=== PATIENT | male | born 1940 | race Asian ===

== ENCOUNTER 2019-04-27 21:26 | Inpatient (IN) | payer BC, MEDICAID ==
[~2019-04-27] VITALS: Ht 170.2 cm; Wt 74.4 kg
[2019-04-27] MEDS ORDERED: ONDANSETRON HCL 4MG/2ML INJ IV STA (22:42)
[2019-04-27] MEDS ORDERED: KETOROLAC 30MG/ML VIAL IV STA (22:42)
[2019-04-27] MEDS ORDERED: SODIUM CHLORIDE 0.9% 1000ML BAG (SEPSIS BOLUS) IV ONE (22:45)
[2019-04-27 23:18] LABS: HEMATOCRIT. 50.7 % (42.0-52.0); HEMOGLOBIN. 17.3 g/dL (14.0-18.0); MEAN CORPUSCULAR HEMOGLOBIN 31.6 pg (28.0-32.0); MEAN CORPUSCULAR VOLUME 92.6 fL (80.0-94.0); PLATELET 144 x1000/uL (130-400); RED BLOOD CELL COUNT 5.47 mill/uL (4.7-6.1); RED CELL DISTRIBUTION WIDTH 13.9 % (11.6-14.6)
[2019-04-27 23:24] LABS: CHLORIDE 100 mEq/L (98-107); INR 1.2; PROTHROMBIN TIME 12.7 sec (9.6-11.0)
[2019-04-28] MEDS: VANCOMYCIN 1 G PREMIX 200 ML IV SCH ×2 (00:15→01:28)
[2019-04-28] MEDS ORDERED: PIPERACILLIN/TAZ 3.375G PREMIX 50 ML IV ONE (00:15)
[2019-04-28 00:51] LABS: NUCLEATED RED BLOOD CELLS 1 /100 WBC; PLATELET ESTIMATE NORMAL
[2019-04-28 02:15] LABS: CLARITY URINE CLOUDY (CLEAR); COLOR URINE DARK YELLOW (YELLOW); KETONES URINE NEGATIVE (NEGATIVE); LEUKOCYTE ESTERASE URINE TRACE (NEGATIVE); NITRITE URINE POSITIVE (NEGATIVE); OCCULT BLOOD URINE 2+ (NEGATIVE); PH URINE 5.5 (4.5-8.0); PROTEIN URINE 2+ (NEGATIVE); SPECIFIC GRAVITY URINE 1.026 (1.005-1.030)
[2019-04-28] MEDS ORDERED: PIPERACILLIN/TAZOBACTAM 3.375 G in DEXT 5% WATER 100 ML IV SCH ×2 (06:00→08:00)
[2019-04-28] MEDS: SODIUM CHLORIDE 0.9% 1,000 ML IV SCH (06:23)
[2019-04-28] MEDS ORDERED: SODIUM CHLORIDE 0.9% 1,000 ML IV SCH (06:36)
[2019-04-28] MEDS ORDERED: CLONIDINE 0.1MG TABLET PO PRN (06:45)
[2019-04-28] MEDS ORDERED: ONDANSETRON HCL 4MG/2ML INJ IV PRN (06:45)
[2019-04-28] MEDS ORDERED: DIPHENHYDRAMINE 50MG/ML VIAL IV PRN (06:45)
[2019-04-28] MEDS ORDERED: VANCOMYCIN 1250MG in DEXTROSE 5% WATER 250ML IV SCH (07:00)
[2019-04-28 07:44] LABS: CHLORIDE 106 mEq/L (98-107); HEMATOCRIT. 42.7 % (42.0-52.0); HEMOGLOBIN. 14.6 g/dL (14.0-18.0); MEAN CORPUSCULAR HEMOGLOBIN 31.9 pg (28.0-32.0); MEAN CORPUSCULAR VOLUME 92.9 fL (80.0-94.0); MEAN PLATELET VOLUME 7.7 fl (7.4-10.4); PLATELET 104 x1000/uL (130-400); RED CELL DISTRIBUTION WIDTH 14.1 % (11.6-14.6)
[2019-04-28 07:49] LABS: PHOSPHORUS 1.9 mg/dL (2.5-4.9)
[2019-04-28 08:29] LABS: PLATELET ESTIMATE SLIGHTLY DECREASED
[2019-04-28] MEDS ORDERED: ENOXAPARIN 40MG/0.4ML SYR SUBCUT SCH (09:00)
[2019-04-28] MEDS ORDERED: VANCOMYCIN 750 MG PREMIX 150 ML IV SCH (13:00)
[2019-04-28] MEDS ORDERED: LORAZEPAM 2MG/ML CPJ IV PRN (17:00)
[2019-04-28] MEDS ORDERED: VANCOMYCIN 1 G PREMIX 200 ML IV SCH (18:00)
[2019-04-29] MEDS: PIPERACILLIN/TAZOBACTAM 3.375 G in DEXT 5% WATER 100 ML IV SCH ×3 (00:42→20:32)
[2019-04-29] MEDS: VANCOMYCIN 750 MG PREMIX 150 ML IV SCH (12:00)
[2019-04-29] MEDS: ACETAMINOPHEN 325MG TABLET PO PRN (12:43)
[2019-04-29] MEDS ORDERED: VALS80TA30 PO (17:17)
[2019-04-29] MEDS ORDERED: ALBU4TAB6 PO (17:17)
[2019-04-29] MEDS ORDERED: SIMV10TA97 PO (17:17)
[2019-04-29] MEDS ORDERED: DICL100G16 TP (17:18)
[2019-04-29] MEDS ORDERED: GABA-531 PO (17:18)
[2019-04-29] MEDS ORDERED: CELE-84 PO (17:18)
[2019-04-29] MEDS ORDERED: LEVE250T2 PO (17:18)
[2019-04-29] MEDS ORDERED: MECL-159 PO (17:18)
[2019-04-29] MEDS ORDERED: AMYL1CAP61 PO (17:18)
[2019-04-29] MEDS ORDERED: TAMS-11 PO (17:18)
[2019-04-29] MEDS ORDERED: CALC-1280 PO (17:18)
[2019-04-29 17:44] VITALS: BP 127/78
[2019-04-29 18:16] VITALS: BP 127/78
[2019-04-29] MEDS ORDERED: HYDROMORPHONE HCL/PF 2MG/ML CPJ IV PRN (19:45)
[2019-04-29] MEDS ORDERED: SODIUM CHLORIDE 0.9% 1000ML BAG (SEPSIS BOLUS) IV NR (19:47)
[2019-04-29 20:00] VITALS: BP 134/84
[2019-04-29 20:57] LABS: BASOPHILS % 0.1 % (0.0-2.0); EOSINOPHILS % 3.3 % (0.0-5.0); HEMATOCRIT. 42.7 % (42.0-52.0); HEMOGLOBIN. 14.8 g/dL (14.0-18.0); LYMPHOCYTES % 8.2 % (20.0-50.0); MEAN CORPUSCULAR HEMOGLOBIN 31.7 pg (28.0-32.0); MEAN CORPUSCULAR VOLUME 91.8 fL (80.0-94.0); MEAN PLATELET VOLUME 8.1 fl (7.4-10.4); MONOCYTES % 7.4 % (2.0-8.0); PLATELET 80 x1000/uL (130-400); RED BLOOD CELL COUNT 4.65 mill/uL (4.7-6.1); RED CELL DISTRIBUTION WIDTH 13.9 % (11.6-14.6)
[2019-04-29 21:09] LABS: CHLORIDE 104 mEq/L (98-107)
[2019-04-29 22:00] VITALS: BP 136/94
[2019-04-29] MEDS: SODIUM CHLORIDE 0.9% 1,000 ML IV SCH (22:06)
[2019-04-30] VITALS (12 sets, daily range): BP systolic 104–139; BP diastolic 68–93
[2019-04-30] MEDS: VANCOMYCIN 750 MG PREMIX 150 ML IV SCH ×2 (00:48→11:44)
[2019-04-30] MEDS: PIPERACILLIN/TAZOBACTAM 3.375 G in DEXT 5% WATER 100 ML IV SCH ×3 (04:17→22:52)
[2019-04-30 07:26] LABS: BASOPHILS % 0.1 % (0.0-2.0); EOSINOPHILS % 2.5 % (0.0-5.0); HEMATOCRIT. 38.5 % (42.0-52.0); HEMOGLOBIN. 13.2 g/dL (14.0-18.0); LYMPHOCYTES % 8.3 % (20.0-50.0); MEAN CORPUSCULAR HEMOGLOBIN 31.2 pg (28.0-32.0); MEAN CORPUSCULAR VOLUME 90.7 fL (80.0-94.0); MEAN PLATELET VOLUME 8.2 fl (7.4-10.4); MONOCYTES % 9.7 % (2.0-8.0); NEUTROPHILS % 79.4 % (40.0-76.0); PLATELET 74 x1000/uL (130-400); RED BLOOD CELL COUNT 4.25 mill/uL (4.7-6.1); RED CELL DISTRIBUTION WIDTH 13.9 % (11.6-14.6)
[2019-04-30 07:57] LABS: CHLORIDE 108 mEq/L (98-107)
[2019-04-30] MEDS: SODIUM CHLORIDE 0.9% 1,000 ML IV SCH ×2 (11:52→15:28)
[2019-04-30] MEDS ORDERED: POTASSIUM CHLORIDE INJ 40 MEQ in DEXT 5% WATER 250 ML IV NR (12:00)
[2019-04-30] MEDS: ACETAMINOPHEN 325MG TABLET PO PRN ×2 (14:19→21:12)
[2019-04-30] MEDS: PANTOPRAZOLE SODIUM 40 MG/VIAL IV SCH (14:19)
[2019-04-30] MEDS ORDERED: CEFTRIAXONE 2 G PREMIX 50 ML IV SCH (17:45)
[2019-04-30] MEDS ORDERED: DEXTROSE 50% WATER 50ML SYRINGE IV PRN (21:15)
[2019-04-30] MEDS: METRONIDAZOLE 500 MG PREMIX 100 ML IV SCH (23:26)
[2019-05-01] VITALS (13 sets, daily range): BP systolic 102–151; BP diastolic 65–90
[2019-05-01] MEDS: CEFTRIAXONE 2 G in DEXTROSE 5% WATER 50 ML IV SCH ×2 (00:50→20:59)
[2019-05-01] MEDS: SODIUM CHLORIDE 0.9% 1,000 ML IV SCH ×3 (01:28→21:00)
[2019-05-01] MEDS: PIPERACILLIN/TAZOBACTAM 3.375 G in DEXT 5% WATER 100 ML IV SCH (05:55)
[2019-05-01] MEDS: BLOOD SUGAR DIAGNOSTIC STRIP TEST SCH ×4 (05:57→21:01)
[2019-05-01] MEDS: METRONIDAZOLE 500 MG PREMIX 100 ML IV SCH ×3 (06:39→20:09)
[2019-05-01] MEDS: INSULIN LISPRO 100 UNITS/ML SUBCUT SCH ×4 (07:17→21:00)
[2019-05-01] MEDS: PANTOPRAZOLE SODIUM 40 MG/VIAL IV SCH (07:28)
[2019-05-01 07:43] LABS: BASOPHILS % 0.2 % (0.0-2.0); EOSINOPHILS % 3.5 % (0.0-5.0); HEMOGLOBIN. 12.7 g/dL (14.0-18.0); LYMPHOCYTES % 8.1 % (20.0-50.0); MEAN CORPUSCULAR HEMOGLOBIN 31.4 pg (28.0-32.0); MEAN CORPUSCULAR VOLUME 91.4 fL (80.0-94.0); MEAN PLATELET VOLUME 8.5 fl (7.4-10.4); NEUTROPHILS % 79.2 % (40.0-76.0); PLATELET 82 x1000/uL (130-400); RED BLOOD CELL COUNT 4.05 mill/uL (4.7-6.1)
[2019-05-01 08:31] LABS: CHLORIDE 109 mEq/L (98-107)
[2019-05-01] MEDS ORDERED: POTASSIUM CHLORIDE 20MEQ TABLET SR PO SCH (09:00)
[2019-05-01] MEDS ORDERED: LACTULOSE 20G/30ML UDC PO NR (09:30)
[2019-05-01] MEDS ORDERED: NA PHOS,M-B/NA PHOS,DI-BA ENEMA 118ML PR NR (09:30)
[2019-05-02] VITALS (11 sets, daily range): BP systolic 109–143; BP diastolic 66–92
[2019-05-02] MEDS: METRONIDAZOLE 500 MG PREMIX 100 ML IV SCH ×3 (03:01→19:33)
[2019-05-02] MEDS: BLOOD SUGAR DIAGNOSTIC STRIP TEST SCH ×4 (06:09→20:47)
[2019-05-02] MEDS: INSULIN LISPRO 100 UNITS/ML SUBCUT SCH ×4 (06:13→20:47)
[2019-05-02 06:46] LABS: BASOPHILS % 0.3 % (0.0-2.0); EOSINOPHILS % 3.5 % (0.0-5.0); HEMATOCRIT. 36.1 % (42.0-52.0); HEMOGLOBIN. 12.2 g/dL (14.0-18.0); LYMPHOCYTES % 11.3 % (20.0-50.0); MEAN CORPUSCULAR HEMOGLOBIN 30.8 pg (28.0-32.0); MEAN CORPUSCULAR VOLUME 91.1 fL (80.0-94.0); MEAN PLATELET VOLUME 8.5 fl (7.4-10.4); MONOCYTES % 9.4 % (2.0-8.0); NEUTROPHILS % 75.5 % (40.0-76.0); PLATELET 111 x1000/uL (130-400); RED BLOOD CELL COUNT 3.96 mill/uL (4.7-6.1); RED CELL DISTRIBUTION WIDTH 14.2 % (11.6-14.6)
[2019-05-02 07:20] LABS: CHLORIDE 110 mEq/L (98-107)
[2019-05-02] MEDS: PANTOPRAZOLE SODIUM 40 MG/VIAL IV SCH (08:00)
[2019-05-02] MEDS: SODIUM CHLORIDE 0.9% 1,000 ML IV SCH ×2 (08:01→21:26)
[2019-05-02] MEDS ORDERED: POTASSIUM CHLORIDE INJ 40 MEQ in DEXT 5% WATER 250 ML IV NR (13:00)
[2019-05-02] MEDS ORDERED: POTASSIUM CHLORIDE 20MEQ TABLET SR PO NR (14:30)
[2019-05-02] MEDS: CEFTRIAXONE 2 G in DEXTROSE 5% WATER 50 ML IV SCH (19:33)
[2019-05-03] VITALS (8 sets, daily range): BP systolic 111–138; BP diastolic 70–91
[2019-05-03] MEDS: SODIUM CHLORIDE 0.9% 1,000 ML IV SCH ×2 (03:28→13:28)
[2019-05-03] MEDS: METRONIDAZOLE 500 MG PREMIX 100 ML IV SCH ×2 (04:25→12:31)
[2019-05-03] MEDS: BLOOD SUGAR DIAGNOSTIC STRIP TEST SCH ×3 (05:48→20:31)
[2019-05-03] MEDS: INSULIN LISPRO 100 UNITS/ML SUBCUT SCH ×3 (05:48→20:31)
[2019-05-03 07:00] LABS: CHLORIDE 110 mEq/L (98-107)
[2019-05-03 07:18] LABS: BASOPHILS % 0.3 % (0.0-2.0); EOSINOPHILS % 5.1 % (0.0-5.0); HEMATOCRIT. 35.4 % (42.0-52.0); HEMOGLOBIN. 12.3 g/dL (14.0-18.0); LYMPHOCYTES % 15.3 % (20.0-50.0); MEAN CORPUSCULAR HEMOGLOBIN 31.1 pg (28.0-32.0); MEAN CORPUSCULAR VOLUME 89.7 fL (80.0-94.0); MEAN PLATELET VOLUME 8.1 fl (7.4-10.4); MONOCYTES % 7.9 % (2.0-8.0); NEUTROPHILS % 71.4 % (40.0-76.0); PLATELET 183 x1000/uL (130-400); RED BLOOD CELL COUNT 3.95 mill/uL (4.7-6.1); RED CELL DISTRIBUTION WIDTH 14.1 % (11.6-14.6)
[2019-05-03] MEDS: ACETAMINOPHEN 325MG TABLET PO PRN (07:59)
[2019-05-03] MEDS: PANTOPRAZOLE SODIUM 40 MG/VIAL IV SCH (07:59)
[2019-05-03] MEDS: CEFTRIAXONE 2 G in DEXTROSE 5% WATER 50 ML IV SCH (20:26)
[2019-05-03] MEDS: METRONIDAZOLE 500MG TABLET PO SCH (21:07)
[2019-05-04] VITALS (8 sets, daily range): BP systolic 117–142; BP diastolic 68–86
[2019-05-04] MEDS: SODIUM CHLORIDE 0.9% 1,000 ML IV SCH ×2 (03:56→10:00)
[2019-05-04] MEDS: METRONIDAZOLE 500MG TABLET PO SCH ×2 (05:32→14:56)
[2019-05-04] MEDS: INSULIN LISPRO 100 UNITS/ML SUBCUT SCH ×2 (05:39→12:30)
[2019-05-04] MEDS: BLOOD SUGAR DIAGNOSTIC STRIP TEST SCH ×2 (05:39→11:49)
[2019-05-04 06:55] LABS: BASOPHILS % 0.4 % (0.0-2.0); EOSINOPHILS % 6.6 % (0.0-5.0); HEMATOCRIT. 35.9 % (42.0-52.0); HEMOGLOBIN. 12.4 g/dL (14.0-18.0); LYMPHOCYTES % 16.1 % (20.0-50.0); MEAN CORPUSCULAR VOLUME 89.7 fL (80.0-94.0); MEAN PLATELET VOLUME 7.7 fl (7.4-10.4); NEUTROPHILS % 69.9 % (40.0-76.0); PLATELET 243 x1000/uL (130-400); RED BLOOD CELL COUNT 4.01 mill/uL (4.7-6.1); RED CELL DISTRIBUTION WIDTH 13.9 % (11.6-14.6)
[2019-05-04 07:44] LABS: CHLORIDE 110 mEq/L (98-107)
[2019-05-04] MEDS: PANTOPRAZOLE SODIUM 40 MG/VIAL IV SCH (09:56)
[2019-05-04] MEDS ORDERED: POTASSIUM CHLORIDE 20MEQ TABLET SR PO NR (12:00)
[2019-05-04] MEDS ORDERED: LEVO750T21 MT (12:07)
[2019-05-05 16:11] LABS: HEPATITIS B SURFACE ANTIGEN NEGATIVE
[2019-05-05 16:40] LABS: HEPATITIS A AB IGM NEGATIVE (NEGATIVE)
== END 2019-05-04 17:10 | disposition home or self-care (01) | DRG 871 ==
LOC: ER 21:26 → EDBEDREQ 04-28 01:25 → EDBEDREQTM 04-28 02:57 → EDBEDREQDT 04-28 02:57 → ENRESERV 04-29 16:38 → 3WST 04-29 17:58
PROVIDERS: ADMIT Internal Medicine; ATTEND Internal Medicine
DX: A41.89 Other specified sepsis (principal); J18.9 Pneumonia, unspecified organism; E87.2 Acidosis; K82.0 Obstruction of gallbladder; N39.0 Urinary tract infection, site not specified; R18.8 Other ascites; J91.8 Pleural effusion in other conditions classified elsewhere; K81.0 Acute cholecystitis; R65.20 Severe sepsis without septic shock; D69.6 Thrombocytopenia, unspecified; E11.65 Type 2 diabetes mellitus with hyperglycemia; E78.5 Hyperlipidemia, unspecified; E87.6 Hypokalemia; G40.909 Epilepsy, unspecified, not intractable, without status epilepticus; I10 Essential (primary) hypertension; K76.0 Fatty (change of) liver, not elsewhere classified; N28.1 Cyst of kidney, acquired; R16.0 Hepatomegaly, not elsewhere classified; E87.5 Hyperkalemia
CPT/HCPCS: 36415; 71045; 74018; 74176; 74181; 76700; 76705; 78227; 80048; 80053; 80061; 80076; 80202; 81003; 82140; 82248; 82962; 83036; 83605; 83735; 83880; 84100; 84145; 84443; 84450; 84460; 84484; 85025; 86705; 86709; 86803; 87077; 87186; 87340; 93005; 93306; 93970; 96361; 96365; 96366; 96367; 96372; 96375; 97116; 97162; 97166; 99291; A9537; C9113; J0696; J1650; J1815; J1885; J2405; J2543; J3370; J3480; J3490; J7030; J7060

== ENCOUNTER 2020-02-28 13:52 | Emergency (ER) | payer BC, MEDICAID ==
[~2020-02-28] VITALS: Ht 165.1 cm; Wt 61.0 kg
[~2020-02-28 13:52] MED LIST: ALBU4TAB6 PO; AMYL1CAP61 PO; CALC-1280 PO; CELE-84 PO; DICL100G16 TP; GABA-531 PO; LEVE250T2 PO; LEVO750T21 MT; MECL-159 PO; SIMV10TA97 PO; TAMS-11 PO; VALS80TA30 PO
[2020-02-28 14:00] VITALS: BP 112/68
[2020-02-28] MEDS ORDERED: BACITRACIN ZINC OINT UDPKT TOP ONE (18:15)
[2020-02-28] MEDS ORDERED: TETANUS, DIPHTHERIA, PERTUSSIS VAC/PF 0.5ML (>7YR OLD) IM ONE (18:15)
[2020-02-28] MEDS ORDERED: LIDOCAINE HCL 1% 20ML VIAL (Pyxis) INJ INFIL ONE (19:30)
[2020-02-28] MEDS ORDERED: CEPHALEXIN 250MG CAPSULE PO ONE (20:00)
== END 2020-02-28 20:50 | disposition home or self-care (01) ==
LOC: ER 14:01
DX: S01.111A Laceration without foreign body of right eyelid and periocular area, initial encounter (principal); S09.90XA Unspecified injury of head, initial encounter; M54.2 Cervicalgia; E11.9 Type 2 diabetes mellitus without complications; I10 Essential (primary) hypertension; W01.0XXA Fall on same level from slipping, tripping and stumbling without subsequent striking against object, initial encounter; Y93.89 Activity, other specified; Y92.018 Other place in single-family (private) house as the place of occurrence of the external cause
CPT/HCPCS: 70450; 70486; 72125; 90471; 90715; 93005; 99285; J3490

== ENCOUNTER 2023-06-27 18:37 | Inpatient (IN) | payer BC, MEDICAID ==
[~2023-06-27] VITALS: Ht 172.7 cm; Wt 71.3 kg
[~2023-06-27 18:37] MED LIST changes: +CELE-116 PO; -CELE-84 PO; -GABA-531 PO; +GABA-532 PO; -MECL-159 PO; +MECL-299 PO
[2023-06-27 18:50] VITALS: PULSE 124; RESP 17
[2023-06-27] MEDS: SODIUM CHLORIDE 0.9% 1000ML BAG (SEPSIS BOLUS) IV ONE (19:02)
[2023-06-27] MEDS: PIPERACILLIN/TAZO 3.375G/50ML 50 ML IV ONE (19:09)
[2023-06-27] MEDS: ROCURONIUM BROMIDE 10MG/ML VIAL 5ML IV ONE (19:10)
[2023-06-27 19:16] LABS: BASOPHILS % 0.6 % (0.0-2.0); EOSINOPHILS % 0.3 % (0.0-5.0); HEMATOCRIT. 35.4 % (42.0-52.0); HEMOGLOBIN. 11.9 g/dL (14.0-18.0); LYMPHOCYTES % 17.5 % (20.0-50.0); MEAN CORPUSCULAR HEMOGLOBIN 29.8 pg (28.0-32.0); MEAN CORPUSCULAR HGB CONC 33.6 g/dL (31.0-37.0); MEAN CORPUSCULAR VOLUME 88.5 fL (80.0-94.0); MONOCYTES % 12.6 % (2.0-8.0); PLATELET 144 x1000/uL (130-400); RED CELL DISTRIBUTION WIDTH 17.9 % (11.6-14.6); WHITE BLOOD COUNT 7.7 x1000/uL (4.5-11.0)
[2023-06-27 19:26] LABS: INR 1.2
[2023-06-27] MEDS: VANCOMYCIN 1G PREMIX 200 ML IV ONE (19:28)
[2023-06-27 19:30] LABS: LACTIC ACID 2.5 mmol/L (0.4-2.0)
[2023-06-27 19:31] LABS: ALANINE AMINOTRANSFERASE 46 IU/L (10-49); ALBUMIN 3.5 g/dL (3.2-4.8); ASPARTATE AMINOTRANSFERASE 56 IU/L (<34); BILIRUBIN TOTAL 2.2 mg/dL (0.1-1.0); CALCIUM 8.7 mg/dL (8.7-10.4); CARBON DIOXIDE 19 mEq/L (21-32); CHLORIDE 112 mEq/L (98-107); CREATINE KINASE 507 IU/L (46-171); CREATININE 1.1 mg/dL (0.6-1.3); GLUCOSE 81 mg/dL (70-105); POTASSIUM 4.2 mEq/L (3.5-5.1); PROTEIN TOTAL 6.9 g/dL (6.0-8.3); SODIUM 142 mEq/L (136-145); UREA NITROGEN BLOOD 31 mg/dL (9-23)
[2023-06-27 19:33] LABS: ETHANOL BLOOD < 10 mg/dL (<10)
[2023-06-27 19:47] LABS: CLARITY URINE CLEAR (CLEAR); COLOR URINE YELLOW (YELLOW); GLUCOSE URINE NEGATIVE (NEGATIVE); KETONES URINE 1+ (NEGATIVE); LEUKOCYTE ESTERASE URINE NEGATIVE (NEGATIVE); NITRITE URINE NEGATIVE (NEGATIVE); OCCULT BLOOD URINE 1+ (NEGATIVE); PROTEIN URINE TRACE (NEGATIVE); SPECIFIC GRAVITY URINE 1.019 (1.005-1.030)
[2023-06-27 19:56] LABS: *AMPHETAMINES SCREEN URINE NEGATIVE (NEGATIVE); *BARBITURATES SCREEN URINE NEGATIVE (NEGATIVE); *BENZODIAZEPINES SCREEN URINE NEGATIVE (NEGATIVE); *COCAINE SCREEN URINE NEGATIVE (NEGATIVE); CANNABINOID URINE SCREEN NEGATIVE (NEGATIVE); ECSTASY MDMA SCREEN URINE NEGATIVE (NEGATIVE); METHADONE URINE SCREEN Neg (NEGATIVE); OPIATES URINE SCREEN NEGATIVE (NEGATIVE); PHENCYCLIDINE URINE SCREEN NEGATIVE (NEGATIVE)
[2023-06-27 19:59] LABS: BACTERIA URINE NONE SEEN; RBC URINE 0-2 /hpf (0-2); SQUAMOUS EPITHELIAL CELL URINE 1+ /lpf (RARE/1+); WBC URINE 0-2 /hpf (0-2)
[2023-06-27 20:59] VITALS: PULSE 92; RESP 16
[2023-06-27] MEDS ORDERED: FENTANYL 2500MCG/250ML PMX 250 ML IV NR (21:30)
[2023-06-27] MEDS: PROPOFOL 10MG/ML 100ML 100 ML IV SCH (21:33)
[2023-06-27 22:26] LABS: BG BASE EXCESS -7.4 mmol/L (-2.0-2.0); BG DEOXYHEMOGLOBIN 2.1 % (0.0-5.0); BG FRACTION INSPIRED OXYGEN 100; BG HCO3 ACT 17.1 mmol/L (22.0-26.0); BG METHEMOGLOBIN 0.3 % (0.0-1.5); BG OXYGEN SATURATION 97.9 % (92.0-98.5); BG OXYHEMOGLOBIN 97.6 % (94.0-97.0); BG PCO2 31.8 mmHg (35.0-45.0); BG PH 7.349 (7.350-7.450); BG PO2 156.8 mmHg (75.0-100.0); BG SAMPLE SITE RIGHT RADIAL; BG TOTAL HEMOGLOBIN 12.2 g/dL (12.0-18.0); BG VENT MODE VENT - AC
[2023-06-27] MEDS: NOREPINEPHRINE 8MG/250ML PMX 250 ML IV ONE (22:28)
[2023-06-28] VITALS (32 sets, daily range): BP systolic 106–152; BP diastolic 55–79; PULSE 65–101; RESP 15–28; TEMP 97.1
[2023-06-28 00:23] LABS: TROPONIN I HIGH SENSITIVITY 82 ng/L (3.0-53)
[2023-06-28] MEDS ORDERED: ONDANSETRON HCL 4MG/2ML INJ IV PRN (01:00)
[2023-06-28] MEDS ORDERED: ACETAMINOPHEN 650MG SUPP PR PRN (01:00)
[2023-06-28] MEDS ORDERED: DIPHENHYDRAMINE 50MG/ML VIAL IV PRN (01:00)
[2023-06-28] MEDS: CEFTRIAXONE 1GM/50ML 50 ML IV SCH (02:01)
[2023-06-28] MEDS: ACETAMINOPHEN 650MG SUPP PR PRN (02:30)
[2023-06-28] MEDS: DEXT 5%/0.45% NACL 1000ML 1,000 ML IV SCH (03:00)
[2023-06-28] MEDS: FENTANYL 2500MCG/250ML PMX 250 ML IV NR (03:47)
[2023-06-28 04:28] LABS: EOSINOPHILS % 0.4 % (0.0-5.0); HEMOGLOBIN. 12.7 g/dL (14.0-18.0); LYMPHOCYTES % 19.6 % (20.0-50.0); MEAN CORPUSCULAR HEMOGLOBIN 30.8 pg (28.0-32.0); MEAN CORPUSCULAR HGB CONC 33.4 g/dL (31.0-37.0); MEAN CORPUSCULAR VOLUME 92.1 fL (80.0-94.0); MEAN PLATELET VOLUME 7.7 fl (7.4-10.4); MONOCYTES % 12.7 % (2.0-8.0); NEUTROPHILS % 66.3 % (40.0-76.0); PLATELET 112 x1000/uL (130-400); RED BLOOD CELL COUNT 4.12 mill/uL (4.7-6.1); RED CELL DISTRIBUTION WIDTH 18.5 % (11.6-14.6); WHITE BLOOD COUNT 10.2 x1000/uL (4.5-11.0)
[2023-06-28 04:47] LABS: CALCIUM 7.9 mg/dL (8.7-10.4); CARBON DIOXIDE 18 mEq/L (21-32); CHLORIDE 112 mEq/L (98-107); CREATININE 0.9 mg/dL (0.6-1.3); GLUCOSE 107 mg/dL (70-105); POTASSIUM 3.9 mEq/L (3.5-5.1); SODIUM 139 mEq/L (136-145); UREA NITROGEN BLOOD 20 mg/dL (9-23)
[2023-06-28 04:49] LABS: AMMONIA 85 uMol/L (<32)
[2023-06-28] MEDS ORDERED: LIDOCAINE HCL 1% 10 MG/ML 10ML VIAL ONE (09:31)
[2023-06-28] MEDS: ENOXAPARIN 40MG/0.4ML SYR SUBCUT SCH (09:36)
[2023-06-28] MEDS: PROPOFOL 10MG/ML 100ML 100 ML IV PRN (10:00)
[2023-06-28] MEDS: NOREPINEPHRINE 8MG/250ML PMX 250 ML IV PRN (10:23)
[2023-06-28 11:40] LABS: TROPONIN I HIGH SENSITIVITY 136 ng/L (3.0-53)
[2023-06-28 12:36] LABS: PHOSPHORUS 2.4 mg/dL (2.5-4.9)
[2023-06-28] MEDS: PANTOPRAZOLE SODIUM 40 MG/VIAL IV SCH (12:40)
[2023-06-28 12:42] LABS: IRON 45 ug/dL (65-175); TOTAL IRON BINDING CAPACITY 232 ug/dl (250-425)
[2023-06-28] MEDS: POTASSIUM PHOSPHATE 20 MMOL in DEXT 5% WATER 243.3333 ML IV NR (14:20)
[2023-06-28] MEDS: MAGNESIUM 2 G PREMIX 50 ML IV NR (14:20)
[2023-06-28] MEDS ORDERED: HYDRALAZINE 20MG/ML VIAL IV PRN (15:15)
[2023-06-28 17:32] LABS: D-DIMER 3.13 mg/L FEU (<0.50); PARTIAL THROMBOPLASTIN TIME 34.6 sec (23.4-31.0)
[2023-06-28] MEDS ORDERED: METRONIDAZOLE 500 MG PREMIX 100 ML IV SCH (18:00)
[2023-06-28] MEDS: LACTULOSE 20G/30ML UDC NG SCH (18:20)
[2023-06-28] MEDS ORDERED: CEFEPIME 1GM/50ML 50 ML IV SCH (19:30)
[2023-06-28] MEDS: METRONIDAZOLE 500 MG PREMIX 100 ML IV SCH (21:13)
[2023-06-28] MEDS: CEFEPIME 1GM/50ML 50 ML IV SCH (22:41)
[2023-06-29] VITALS (93 sets, daily range): BP systolic 92–131; BP diastolic 49–87; PULSE 59–94; RESP 8–18; TEMP 97.9–98.4
[2023-06-29 05:44] LABS: AMMONIA 36 uMol/L (<32)
[2023-06-29 05:54] LABS: BASOPHILS % 0.3 % (0.0-2.0); EOSINOPHILS % 1.3 % (0.0-5.0); HEMOGLOBIN. 11.2 g/dL (14.0-18.0); LYMPHOCYTES % 11.7 % (20.0-50.0); MEAN CORPUSCULAR HEMOGLOBIN 30.6 pg (28.0-32.0); MEAN CORPUSCULAR VOLUME 92.7 fL (80.0-94.0); MEAN PLATELET VOLUME 7.7 fl (7.4-10.4); MONOCYTES % 7.5 % (2.0-8.0); NEUTROPHILS % 79.2 % (40.0-76.0); PLATELET 86 x1000/uL (130-400); RED BLOOD CELL COUNT 3.66 mill/uL (4.7-6.1); RED CELL DISTRIBUTION WIDTH 18.2 % (11.6-14.6); WHITE BLOOD COUNT 8.6 x1000/uL (4.5-11.0)
[2023-06-29 06:10] LABS: CARBON DIOXIDE 21 mEq/L (21-32); CHLORIDE 113 mEq/L (98-107); CREATININE 0.8 mg/dL (0.6-1.3); GLUCOSE 141 mg/dL (70-105); POTASSIUM 3.2 mEq/L (3.5-5.1); SODIUM 141 mEq/L (136-145); UREA NITROGEN BLOOD 17 mg/dL (9-23)
[2023-06-29 06:47] LABS: HEPATITIS B SURFACE ANTIGEN NEGATIVE (Negative); HEPATITIS C AB NON REACTIVE (Neg) (Negative)
[2023-06-29] MEDS ORDERED: POTASSIUM CHLORIDE 20MEQ/PACKET NG ONE (08:15)
[2023-06-29 09:23] LABS: BG BASE EXCESS -2.7 mmol/L (-2.0-2.0); BG CARBOXYHEMOGLOBIN 0.5 % (0.5-1.5); BG DEOXYHEMOGLOBIN 3.5 % (0.0-5.0); BG FRACTION INSPIRED OXYGEN 40; BG HCO3 ACT 20.8 mmol/L (22.0-26.0); BG METHEMOGLOBIN 0.3 % (0.0-1.5); BG OXYGEN SATURATION 96.5 % (92.0-98.5); BG OXYHEMOGLOBIN 95.7 % (94.0-97.0); BG PCO2 32.1 mmHg (35.0-45.0); BG PO2 100.9 mmHg (75.0-100.0); BG SAMPLE SITE RIGHT RADIAL; BG TOTAL HEMOGLOBIN 12.2 g/dL (12.0-18.0); BG VENT MODE VENT - AC
[2023-06-29] MEDS: POTASSIUM PHOSPHATE 30 MMOL in DEXT 5% WATER 490 ML IV SCH (10:31)
[2023-06-29] MEDS: MAGNESIUM 2 G PREMIX 50 ML IV SCH (10:32)
[2023-06-29] MEDS: CEFEPIME 2GM/100ML 100 ML IV SCH (10:32)
[2023-06-29] MEDS: POTASSIUM CHLORIDE 20MEQ/PACKET NG SCH (10:33)
[2023-06-29 14:16] LABS: BG BASE EXCESS -3.4 mmol/L (-2.0-2.0); BG CARBOXYHEMOGLOBIN 0.3 % (0.5-1.5); BG DEOXYHEMOGLOBIN 2.6 % (0.0-5.0); BG FRACTION INSPIRED OXYGEN 40; BG HCO3 ACT 19.9 mmol/L (22.0-26.0); BG METHEMOGLOBIN 0.3 % (0.0-1.5); BG OXYGEN SATURATION 97.4 % (92.0-98.5); BG OXYHEMOGLOBIN 96.8 % (94.0-97.0); BG PCO2 29.9 mmHg (35.0-45.0); BG PH 7.441 (7.350-7.450); BG PO2 132.4 mmHg (75.0-100.0); BG SAMPLE SITE LEFT BRACHIAL; BG TOTAL HEMOGLOBIN 10.8 g/dL (12.0-18.0); BG VENT MODE VENT - CPAP
[2023-06-29] MEDS ORDERED: ICOS1CAP PO (20:55)
[2023-06-29] MEDS ORDERED: [UNRECOGNIZED DRUG - CODE] MT (20:56)
[2023-06-29] MEDS ORDERED: ATOR10TA MT (20:57)
[2023-06-29] MEDS ORDERED: MONT-46 MT (20:57)
[2023-06-29] MEDS ORDERED: OMEP40CA20 MT (20:57)
[2023-06-29] MEDS ORDERED: LOSA-413 PO (20:57)
[2023-06-29] MEDS ORDERED: SITA1TAB2 PO (20:59)
[2023-06-29] MEDS ORDERED: ISOS30TA91 PO (20:59)
[2023-06-29] MEDS ORDERED: RASA0.5T MT (20:59)
[2023-06-30] VITALS (81 sets, daily range): BP systolic 91–129; BP diastolic 54–89; PULSE 60–91; RESP 8–19; TEMP 98.2–98.6
[2023-06-30 05:26] LABS: HEMATOCRIT 31.7 % (42.0-52.0); HEMOGLOBIN 10.6 g/dL (14.0-18.0); MEAN CORPUSCULAR HEMOGLOBIN 30.5 pg (28.0-32.0); MEAN CORPUSCULAR HGB CONC 33.3 g/dL (31.0-37.0); MEAN CORPUSCULAR VOLUME 91.5 fL (80.0-94.0); PLATELET 71 x1000/uL (130-400); RED BLOOD CELL COUNT 3.47 mill/uL (4.7-6.1); RED CELL DISTRIBUTION WIDTH 17.9 % (11.6-14.6); WHITE BLOOD COUNT 4.8 x1000/uL (4.5-11.0)
[2023-06-30 05:43] LABS: AMMONIA 45 uMol/L (<32)
[2023-06-30 05:47] LABS: ALANINE AMINOTRANSFERASE 35 IU/L (10-49); ALBUMIN 2.7 g/dL (3.2-4.8); ASPARTATE AMINOTRANSFERASE 48 IU/L (<34); BILIRUBIN TOTAL 1.3 mg/dL (0.1-1.0); CALCIUM 8.1 mg/dL (8.7-10.4); CARBON DIOXIDE 21 mEq/L (21-32); CHLORIDE 113 mEq/L (98-107); CREATININE 0.6 mg/dL (0.6-1.3); GLUCOSE 130 mg/dL (70-105); PHOSPHORUS 2.1 mg/dL (2.5-4.9); PROTEIN TOTAL 5.5 g/dL (6.0-8.3); SODIUM 141 mEq/L (136-145); UREA NITROGEN BLOOD 12 mg/dL (9-23)
[2023-06-30] MEDS ORDERED: POTASSIUM CHLORIDE 20MEQ/PACKET PO ONE (08:15)
[2023-06-30] MEDS: POTASSIUM CHLORIDE 20MEQ/PACKET NG NR (08:33)
[2023-06-30] MEDS: RIFAXIMIN 550 MG TABLET NG SCH (08:33)
[2023-06-30] MEDS: POTASSIUM PHOSPHATE 30 MMOL in DEXT 5% WATER 490 ML IV NR (08:34)
[2023-06-30 08:43] LABS: BG BASE EXCESS -4.4 mmol/L (-2.0-2.0); BG CARBOXYHEMOGLOBIN 0.2 % (0.5-1.5); BG DEOXYHEMOGLOBIN 2.8 % (0.0-5.0); BG FRACTION INSPIRED OXYGEN 40; BG HCO3 ACT 18.8 mmol/L (22.0-26.0); BG METHEMOGLOBIN 0.3 % (0.0-1.5); BG OXYGEN SATURATION 97.2 % (92.0-98.5); BG OXYHEMOGLOBIN 96.7 % (94.0-97.0); BG PCO2 28.9 mmHg (35.0-45.0); BG PO2 109.9 mmHg (75.0-100.0); BG SAMPLE SITE RIGHT RADIAL; BG TOTAL HEMOGLOBIN 12.5 g/dL (12.0-18.0); BG TOTAL RESPIRATORY RATE 11 b/min; BG VENT MODE VENT - SIMV
[2023-06-30] MEDS ORDERED: POTASSIUM CHLORIDE 20MEQ/PACKET PO NR (11:30)
[2023-06-30 11:50] LABS: BG BASE EXCESS -4.1 mmol/L (-2.0-2.0); BG CARBOXYHEMOGLOBIN 0.3 % (0.5-1.5); BG DEOXYHEMOGLOBIN 3.3 % (0.0-5.0); BG FRACTION INSPIRED OXYGEN 35; BG HCO3 ACT 19.4 mmol/L (22.0-26.0); BG METHEMOGLOBIN 0.3 % (0.0-1.5); BG OXYGEN SATURATION 96.7 % (92.0-98.5); BG OXYHEMOGLOBIN 96.1 % (94.0-97.0); BG PH 7.428 (7.350-7.450); BG PO2 111.6 mmHg (75.0-100.0); BG SAMPLE SITE LEFT BRACHIAL; BG TOTAL HEMOGLOBIN 10.6 g/dL (12.0-18.0); BG VENT MODE VENT - CPAP
[2023-06-30] MEDS ORDERED: NOREPINEPHRINE 8MG/250ML PMX 250 ML IV PRN (14:30)
[2023-06-30] MEDS ORDERED: LACTULOSE 20G/30ML UDC NG PRN (16:45)
[2023-07-01] VITALS (61 sets, daily range): BP systolic 108–165; BP diastolic 60–86; PULSE 62–88; RESP 10–20; TEMP 97.9–98.4
[2023-07-01 05:23] LABS: ALANINE AMINOTRANSFERASE 34 IU/L (10-49); ALBUMIN 2.6 g/dL (3.2-4.8); ASPARTATE AMINOTRANSFERASE 48 IU/L (<34); CARBON DIOXIDE 23 mEq/L (21-32); CHLORIDE 111 mEq/L (98-107); CREATININE 0.6 mg/dL (0.6-1.3); GLUCOSE 119 mg/dL (70-105); POTASSIUM 3.5 mEq/L (3.5-5.1); PROTEIN TOTAL 5.3 g/dL (6.0-8.3); SODIUM 139 mEq/L (136-145); UREA NITROGEN BLOOD 9 mg/dL (9-23)
[2023-07-01 05:24] LABS: AMMONIA 31 uMol/L (<32)
[2023-07-01 05:34] LABS: HEMATOCRIT 30.9 % (42.0-52.0); HEMOGLOBIN 10.4 g/dL (14.0-18.0); MEAN CORPUSCULAR HEMOGLOBIN 30.6 pg (28.0-32.0); MEAN CORPUSCULAR HGB CONC 33.7 g/dL (31.0-37.0); PLATELET 87 x1000/uL (130-400); RED BLOOD CELL COUNT 3.39 mill/uL (4.7-6.1); RED CELL DISTRIBUTION WIDTH 17.7 % (11.6-14.6); WHITE BLOOD COUNT 4.3 x1000/uL (4.5-11.0)
[2023-07-01] MEDS: POTASSIUM CHLORIDE 20MEQ/PACKET NG SCH (08:03)
[2023-07-01] MEDS: POTASSIUM PHOSPHATE 30 MMOL in SODIUM CHLORIDE 0.9% 490 ML IV SCH (09:10)
[2023-07-02] VITALS (13 sets, daily range): BP systolic 112–145; BP diastolic 63–77; PULSE 57–86; RESP 16–22; TEMP 97.5–98.8; O2SAT 95–98
[2023-07-02] MEDS: GUAIFENESIN 200MG/10ML SUGAR FREE UDC PO PRN (04:03)
[2023-07-02 05:32] LABS: CHLORIDE 109 mEq/L (98-107); POTASSIUM 3.9 mEq/L (3.5-5.1); SODIUM 136 mEq/L (136-145)
[2023-07-02 05:35] LABS: CALCIUM 8.1 mg/dL (8.7-10.4); CARBON DIOXIDE 22 mEq/L (21-32); HEMATOCRIT 32.3 % (42.0-52.0); HEMOGLOBIN 10.9 g/dL (14.0-18.0); MEAN CORPUSCULAR HEMOGLOBIN 30.5 pg (28.0-32.0); MEAN CORPUSCULAR HGB CONC 33.7 g/dL (31.0-37.0); MEAN CORPUSCULAR VOLUME 90.4 fL (80.0-94.0); PLATELET 102 x1000/uL (130-400); RED BLOOD CELL COUNT 3.58 mill/uL (4.7-6.1); RED CELL DISTRIBUTION WIDTH 17.4 % (11.6-14.6)
[2023-07-02 05:40] LABS: CREATININE 0.6 mg/dL (0.6-1.3); GLUCOSE 152 mg/dL (70-105); UREA NITROGEN BLOOD 10 mg/dL (9-23)
[2023-07-02 05:41] LABS: ALANINE AMINOTRANSFERASE 34 IU/L (10-49)
[2023-07-02 05:42] LABS: ALBUMIN 2.7 g/dL (3.2-4.8); ASPARTATE AMINOTRANSFERASE 44 IU/L (<34); PHOSPHORUS 2.2 mg/dL (2.5-4.9); PROTEIN TOTAL 5.6 g/dL (6.0-8.3)
[2023-07-02] MEDS: IPRATROPIUM/ALBUTEROL 0.5-3(2.5)MG/3ML NEB HHN SCH (09:52)
[2023-07-02] MEDS: MAGNESIUM 2 G PREMIX 50 ML IV NR ×2 (10:43→13:02)
[2023-07-02] MEDS: POTASSIUM PHOSPHATE 30 MMOL in SODIUM CHLORIDE 0.9% 490 ML IV NR (13:01)
[2023-07-02] MEDS: POTASSIUM PHOSPHATE 15 MMOL in DEXT 5% WATER 245 ML IV NR (15:34)
[2023-07-02] MEDS: RIFAXIMIN 550 MG TABLET PO SCH (21:19)
[2023-07-03] VITALS (9 sets, daily range): BP systolic 96–107; BP diastolic 45–102; PULSE 70–99; RESP 16–20; TEMP 97–98.8; O2SAT 95–97
[2023-07-03] MEDS: POTASSIUM PHOSPHATE 30 MMOL in SODIUM CHLORIDE 0.9% 490 ML IV NR (10:06)
[2023-07-03] MEDS: MAGNESIUM 2 G PREMIX 50 ML IV NR (10:06)
[2023-07-03] MEDS: METRONIDAZOLE 500MG TABLET PO SCH (13:59)
[2023-07-04] VITALS (10 sets, daily range): BP systolic 87–112; BP diastolic 44–68; PULSE 66–93; RESP 16–20; TEMP 98.2–100.2; O2SAT 92–99
[2023-07-04] MEDS: FAMOTIDINE 20MG TABLET PO SCH (09:56)
[2023-07-04] MEDS: CEFEPIME 2GM/100ML 100 ML IV SCH (21:13)
[2023-07-05] VITALS (10 sets, daily range): BP systolic 96–108; BP diastolic 53–60; PULSE 81–94; RESP 18–20; TEMP 97.4–100; O2SAT 93–98
[2023-07-05] MEDS ORDERED: MAGNESIUM 2 G PREMIX 50 ML IV ONE (08:15)
[2023-07-05] MEDS ORDERED: POTASSIUM PHOSPHATE 30 MMOL in SODIUM CHLORIDE 0.9% 490 ML IV NR (09:30)
[2023-07-05 11:37] LABS: CARBON DIOXIDE 23 mEq/L (21-32); CHLORIDE 108 mEq/L (98-107); POTASSIUM 3.5 mEq/L (3.5-5.1); SODIUM 138 mEq/L (136-145)
[2023-07-05 11:42] LABS: CREATININE 0.7 mg/dL (0.6-1.3)
[2023-07-05 11:43] LABS: GLUCOSE 166 mg/dL (70-105); UREA NITROGEN BLOOD 12 mg/dL (9-23)
[2023-07-05 11:45] LABS: PHOSPHORUS 2.2 mg/dL (2.5-4.9)
[2023-07-05] MEDS: MAGNESIUM 2 G PREMIX 50 ML IV NR (14:14)
[2023-07-05] MEDS: POTASSIUM PHOSPHATE 20 MMOL in DEXT 5% WATER 243.3333 ML IV NR (15:02)
[2023-07-06] VITALS (10 sets, daily range): BP systolic 101–108; BP diastolic 51–60; PULSE 65–95; RESP 18–20; TEMP 97.3–99.4; O2SAT 94–98
[2023-07-07] VITALS (10 sets, daily range): BP systolic 99–104; BP diastolic 52–65; PULSE 70–83; RESP 18–20; TEMP 97–99.4; O2SAT 91
[2023-07-07 06:48] LABS: BASOPHILS % 0.5 % (0.0-2.0); EOSINOPHILS % 2.2 % (0.0-5.0); HEMATOCRIT. 31.2 % (42.0-52.0); HEMOGLOBIN. 10.5 g/dL (14.0-18.0); LYMPHOCYTES % 13.4 % (20.0-50.0); MEAN CORPUSCULAR HEMOGLOBIN 30.5 pg (28.0-32.0); MEAN CORPUSCULAR HGB CONC 33.7 g/dL (31.0-37.0); MEAN CORPUSCULAR VOLUME 90.7 fL (80.0-94.0); MEAN PLATELET VOLUME 7.2 fl (7.4-10.4); MONOCYTES % 9.4 % (2.0-8.0); NEUTROPHILS % 74.5 % (40.0-76.0); PLATELET 113 x1000/uL (130-400); RED BLOOD CELL COUNT 3.44 mill/uL (4.7-6.1); WHITE BLOOD COUNT 4.2 x1000/uL (4.5-11.0)
[2023-07-07 07:06] LABS: CARBON DIOXIDE 23 mEq/L (21-32); CHLORIDE 109 mEq/L (98-107); POTASSIUM 3.4 mEq/L (3.5-5.1); SODIUM 139 mEq/L (136-145)
[2023-07-07 07:11] LABS: CREATININE 0.5 mg/dL (0.6-1.3)
[2023-07-07 07:12] LABS: GLUCOSE 103 mg/dL (70-105); UREA NITROGEN BLOOD 10 mg/dL (9-23)
[2023-07-08] VITALS (9 sets, daily range): BP systolic 92–116; BP diastolic 41–64; PULSE 71–89; RESP 16–20; TEMP 98.1–99.4; O2SAT 94–96
[2023-07-08] MEDS: INFLUENZA VACCINE 05/PF 0.5 ML SYRINGE IM ONE (00:59)
[2023-07-08] MEDS: PNEUMOCOCCAL 23-VAL P-SAC VAC 0.5 ML IM ONE (01:00)
[2023-07-09] VITALS: BP 99/50; PULSE 76; RESP 20; TEMP 97.9
[2023-07-09 04:00] VITALS: BP 109/48; PULSE 79; RESP 19; TEMP 97.5
[2023-07-09 08:00] VITALS: BP 108/59; PULSE 74; RESP 18; TEMP 97.8
[2023-07-09 12:03] VITALS: BP 95/49; PULSE 77; RESP 20; TEMP 98.9
[2023-07-09 16:18] VITALS: BP 104/58; PULSE 78; RESP 18; TEMP 97.7
[2023-07-09 20:31] VITALS: BP 100/54; PULSE 68; RESP 19; TEMP 97.3
[2023-07-10 00:36] VITALS: BP 106/51; PULSE 70; RESP 16; TEMP 97.3
[2023-07-10 04:00] VITALS: BP 102/51; PULSE 90; RESP 19; TEMP 97.1
[2023-07-10 08:00] VITALS: BP 105/52; PULSE 80; RESP 18; TEMP 97.1
[2023-07-10 12:00] VITALS: BP 111/66; PULSE 74; RESP 18; TEMP 97.8
[2023-07-10 16:00] VITALS: BP 113/59; PULSE 77; RESP 18; TEMP 97.8
[2023-07-10 20:00] VITALS: BP 107/61; PULSE 78; RESP 19; TEMP 97.8
[2023-07-11] VITALS: BP 101/56; PULSE 76; RESP 19; TEMP 98
[2023-07-11 04:00] VITALS: BP 105/51; PULSE 78; RESP 19; TEMP 97.7
[2023-07-11 05:44] LABS: BASOPHILS % 0.7 % (0.0-2.0); HEMATOCRIT. 34.8 % (42.0-52.0); HEMOGLOBIN. 11.6 g/dL (14.0-18.0); MEAN CORPUSCULAR HEMOGLOBIN 30.2 pg (28.0-32.0); MEAN CORPUSCULAR HGB CONC 33.3 g/dL (31.0-37.0); MEAN CORPUSCULAR VOLUME 90.9 fL (80.0-94.0); MEAN PLATELET VOLUME 7.3 fl (7.4-10.4); MONOCYTES % 10.4 % (2.0-8.0); NEUTROPHILS % 64.9 % (40.0-76.0); PLATELET 131 x1000/uL (130-400); RED BLOOD CELL COUNT 3.83 mill/uL (4.7-6.1); RED CELL DISTRIBUTION WIDTH 18.7 % (11.6-14.6)
[2023-07-11 05:49] LABS: AMMONIA < 17 uMol/L (<32)
[2023-07-11 05:56] LABS: CARBON DIOXIDE 25 mEq/L (21-32); CHLORIDE 111 mEq/L (98-107); SODIUM 142 mEq/L (136-145)
[2023-07-11 05:57] LABS: CALCIUM 8.2 mg/dL (8.7-10.4)
[2023-07-11 06:01] LABS: CREATININE 0.6 mg/dL (0.6-1.3); GLUCOSE 97 mg/dL (70-105)
[2023-07-11 06:02] LABS: UREA NITROGEN BLOOD 13 mg/dL (9-23)
[2023-07-11 06:04] LABS: PHOSPHORUS 2.2 mg/dL (2.5-4.9)
[2023-07-11 08:00] VITALS: BP 107/53; PULSE 76; RESP 18; TEMP 97.7
[2023-07-11] MEDS: MAGNESIUM 2 G PREMIX 50 ML IV ONE (09:54)
[2023-07-11] MEDS: POTASSIUM CHLORIDE 20MEQ/PACKET PO NR (11:05)
[2023-07-11 12:00] VITALS: BP 99/49; PULSE 77; RESP 18; TEMP 98
[2023-07-11] MEDS: POTASSIUM PHOSPHATE 15 MMOL in DEXT 5% WATER 245 ML IV NR (12:31)
[2023-07-11] MEDS: KCL 20MEQ/100ML PREMIX 100 ML IV SCH (15:57)
[2023-07-11 16:00] VITALS: BP 103/52; PULSE 88; RESP 18; TEMP 97.8
[2023-07-11 20:00] VITALS: BP 111/61; PULSE 72; RESP 19; TEMP 97.8
[2023-07-12] VITALS: BP 94/32; PULSE 96; RESP 20; TEMP 98.2
[2023-07-12 04:00] VITALS: BP 106/51; PULSE 74; RESP 19; TEMP 97.8
[2023-07-12 08:00] VITALS: BP 100/62; PULSE 83; RESP 18; TEMP 98.5
[2023-07-12 12:00] VITALS: BP 101/62; PULSE 76; RESP 18; TEMP 98.6
[2023-07-12 16:00] VITALS: BP 106/53; PULSE 72; RESP 18; TEMP 97.6
[2023-07-12 20:00] VITALS: BP 97/47; PULSE 77; RESP 18; TEMP 97.7
[2023-07-13] VITALS: BP 90/56; PULSE 72; RESP 18; TEMP 97.7
[2023-07-13 08:00] VITALS: BP 99/63; PULSE 75; RESP 20; TEMP 98.9
[2023-07-13 11:18] VITALS: BP 108/59; PULSE 72; TEMP 98.9; O2SAT 97
[2023-07-13 12:07] VITALS: BP 108/59; PULSE 72; RESP 20; TEMP 98.9
== END 2023-07-13 12:55 | DRG 871 ==
LOC: ER 18:37 → MICUSO 06-28 17:30 → 7WST 07-02 05:56
PROVIDERS: ADMIT Internal Medicine; ATTEND Internal Medicine
PROC: 5A1945Z Respiratory Ventilation, 24-96 Consecutive Hours (ICD-10-PCS; principal; 2023-06-27)
PROC: 0BH17EZ Insertion of Endotracheal Airway into Trachea, Via Natural or Artificial Opening (ICD-10-PCS; 2023-06-27)
PROC: 05H533Z Insertion of Infusion Device into Right Subclavian Vein, Percutaneous Approach (ICD-10-PCS; 2023-06-28)
PROC: B546ZZA Ultrasonography of Right Subclavian Vein, Guidance (ICD-10-PCS; 2023-06-28)
DX: A41.9 Sepsis, unspecified organism (principal); G82.50 Quadriplegia, unspecified; J96.01 Acute respiratory failure with hypoxia; S06.5XAA Traumatic subdural hemorrhage with loss of consciousness status unknown, initial encounter; I21.A1 Myocardial infarction type 2; G92.8 Other toxic encephalopathy; I45.2 Bifascicular block; K76.6 Portal hypertension; M62.82 Rhabdomyolysis; M48.54XA Collapsed vertebra, not elsewhere classified, thoracic region, initial encounter for fracture; M48.56XA Collapsed vertebra, not elsewhere classified, lumbar region, initial encounter for fracture; A09 Infectious gastroenteritis and colitis, unspecified; D75.839 Thrombocytosis, unspecified; E11.9 Type 2 diabetes mellitus without complications; G20.A1 Parkinson's disease without dyskinesia, without mention of fluctuations; K74.60 Unspecified cirrhosis of liver; M81.0 Age-related osteoporosis without current pathological fracture; R13.10 Dysphagia, unspecified; E83.39 Other disorders of phosphorus metabolism; E83.42 Hypomagnesemia; E87.6 Hypokalemia; R33.9 Retention of urine, unspecified; I10 Essential (primary) hypertension; Z80.0 Family history of malignant neoplasm of digestive organs; Z85.038 Personal history of other malignant neoplasm of large intestine; Z98.1 Arthrodesis status
CPT/HCPCS: 31500; 36415; 36573; 36600; 71045; 71250; 74176; 76705; 80048; 80053; 80305; 80320; 81003; 82140; 82375; 82550; 82805; 82962; 83036; 83540; 83550; 83605; 83735; 83880; 84100; 84145; 84484; 85025; 85027; 85379; 86705; 87340; 92610; 93005; 93306; 93970; 94002; 94003; 94640; 94660; 97110; 97162; 97166; 97530; 97535; 99291; C1725; C9113; J0692; J0696; J1650; J2543; J2704; J3010; J3370; J3475; J3480; J3490; J7030; J7040; J7060; G0480